=== PATIENT | female | born 1935 | race Caucasian/White ===

== ENCOUNTER → 2017-10-02 | Outpatient (CLI) | payer MEDICARE, OTHER | END | disposition home or self-care (01) | LOC: CVU 12:24 | PROVIDERS: ATTEND Internal Medicine Cardiovascular Disease | DX: I65.23 Occlusion and stenosis of bilateral carotid arteries (principal); I08.1 Rheumatic disorders of both mitral and tricuspid valves; I10 Essential (primary) hypertension; E78.5 Hyperlipidemia, unspecified; I27.29 Other secondary pulmonary hypertension | CPT/HCPCS: 93306; 93880 ==

== ENCOUNTER → 2018-10-31 | Outpatient (CLI) | payer MEDICARE, OTHER | END | disposition home or self-care (01) | LOC: CVU 10:56 | PROVIDERS: ATTEND Internal Medicine Cardiovascular Disease | DX: I08.8 Other rheumatic multiple valve diseases (principal) | CPT/HCPCS: 93306 ==

== ENCOUNTER 2020-08-03 08:13 | Day surgery (SDC) | payer MEDICARE, OTHER ==
[~2020-08-03] VITALS: Ht 160 cm; Wt 44.5 kg
[2020-08-03 08:49] VITALS: BP 159/78
[2020-08-03] MEDS ORDERED: CHOL10003 PO (09:03)
[2020-08-03] MEDS ORDERED: LISI-463 PO (09:03)
[2020-08-03] MEDS ORDERED: METO-93 PO (09:03)
[2020-08-03] MEDS ORDERED: L-Thyroxine PO (09:03)
[2020-08-03] MEDS ORDERED: DIGO125T85 PO (09:03)
[2020-08-03] MEDS ORDERED: AMLO2.5T5 PO (09:03)
[2020-08-03] MEDS ORDERED: AMIO200T42 PO (09:03)
[2020-08-03] MEDS ORDERED: APIX2.5T PO (09:03)
[2020-08-03 10:10] LABS: ANION GAP 5 mmol/L (5-15); CALCIUM 8.8 mg/dL (8.5-10.1); CHLORIDE 107 mmol/L (98-107); CREATININE 0.98 mg/dL (0.55-1.02)
[2020-08-03] MEDS ORDERED: PROPOFOL 10 MG/ML, 20ML ONE (10:13)
[2020-08-03] MEDS ORDERED: METO25TA91 PO (10:43)
== END 2020-08-03 13:00 | disposition home or self-care (01) ==
LOC: CACL 08:13
PROVIDERS: ATTEND Internal Medicine Cardiovascular Disease
DX: I48.0 Paroxysmal atrial fibrillation (principal); I49.5 Sick sinus syndrome; I11.0 Hypertensive heart disease with heart failure; I50.33 Acute on chronic diastolic (congestive) heart failure; E78.00 Pure hypercholesterolemia, unspecified; E03.9 Hypothyroidism, unspecified; Z79.01 Long term (current) use of anticoagulants; Z79.890 Hormone replacement therapy; Z79.899 Other long term (current) drug therapy; Z86.73 Personal history of transient ischemic attack (TIA), and cerebral infarction without residual deficits
CPT/HCPCS: 36415; 80048; 92960; 93005; J2704

== ENCOUNTER 2020-11-19 10:53 | Outpatient (CLI) | payer MEDICARE, OTHER ==
[~2020-11-19 10:53] MED LIST: AMIO200T42 PO; AMLO2.5T5 PO; APIX2.5T PO; CHOL10003 PO; DIGO125T85 PO; L-Thyroxine PO; LISI-463 PO; METO-93 PO; METO25TA91 PO
== END 2020-11-19 23:59 | disposition home or self-care (01) ==
LOC: CFH 10:53
PROVIDERS: ATTEND Registered Nurse
DX: I08.8 Other rheumatic multiple valve diseases (principal); I11.0 Hypertensive heart disease with heart failure; I48.0 Paroxysmal atrial fibrillation; I50.33 Acute on chronic diastolic (congestive) heart failure
CPT/HCPCS: 93306